=== PATIENT | female | born 1960 | race Caucasian/White ===

== ENCOUNTER 2020-12-03 09:29 | Emergency (ER) | payer MEDICARE ==
[2020-12-03 11:13] LABS: HEMOGLOBIN 16.3 gm/dl (12.3-15.3); RED BLOOD COUNT 4.94 M/UL (4.00-5.10); WHITE BLOOD COUNT 9.3 K/UL (4.5-11.0)
[2020-12-03 11:49] LABS: BUN/CREATININE RATIO 28 (0-10)
[2020-12-03] MEDS ORDERED: PHENERGAN 25 MG25 M1 PO (15:22)
== END 2020-12-03 15:43 | disposition home or self-care (01) ==
LOC: ER1 09:29
PROVIDERS: Physician Assistant Medical
DX: R11.2 Nausea with vomiting, unspecified (principal); R09.81 Nasal congestion; R10.2 Pelvic and perineal pain; G89.29 Other chronic pain; E11.9 Type 2 diabetes mellitus without complications; I10 Essential (primary) hypertension; F11.20 Opioid dependence, uncomplicated; Z90.49 Acquired absence of other specified parts of digestive tract; Z90.710 Acquired absence of both cervix and uterus; Z79.01 Long term (current) use of anticoagulants; Z79.899 Other long term (current) drug therapy
CPT/HCPCS: 80053; 81001; 83605; 85025; 87086; 96374; 96375; 96376; 99284; J0780; J2270; J2405; J7030